=== PATIENT | male | born 2000 ===

== ENCOUNTER → 2024-01-27 09:43 | Outpatient (CLI) | payer OTHER, SELFPAY ==
--- NOTE | 2024-01-27 09:46 | DI.RAD.S_ITS ---
PROCEDURE: XR KNEE RT 3V INDICATIONS: Right knee pain TECHNIQUE: 3 views of the knee were acquired. COMPARISON: None. FINDINGS: Bones: No high-grade degenerative changes. No acute displaced fracture or dislocation. Soft tissues: Possible mild joint effusion IMPRESSION: No high-grade degenerative changes or acute radiographic abnormality. Possible mild joint effusion. If there is high concern for further derangement, consider MRI evaluation. Dictated by: Pasquale Cárdenas M.D. on 01/27/2024 at 14:06 Approved by: Pasquale Cárdenas M.D. on 01/27/2024 at 14:07
== END ==
PROVIDERS: Referring Provider Nurse Practitioner Family; Visit Provider Nurse Practitioner Family
DX: M25.561 Pain in right knee (principal)
CPT/HCPCS: 73562